=== PATIENT | female | born 1935 | race Caucasian/White ===

== ENCOUNTER → 2016-08-09 | Outpatient (CLI) | payer MEDICARE, MEDICAID ==
[~2016-08-09] MED LIST: AC500T PO; ACHD5005 PO; CEPH500C PO; CHOL200035 PO; HYDR-34 PO; HYDR-3857 PO; HYDR1TAB PO; LEVO500T69 PO; METR500T PO; MULT-974 PO; PRAV10TA23; PRAV80TA2 PO; TRAM-42 PO; VICODIN 5/325MG; [UNRECOGNIZED DRUG - OTHER] PO
--- OUTSIDE RECORDS SUMMARY | 2016-08-09 09:39 | XMS REPORT | Continuity of Care Document ---
Author Author [facility] Organization [facility] Address Unknown Phone Unavailable Care Team Providers Care Sharepoint Administrator Name Role Phone PCP Unavailable Source Comments Some departments are not documenting in the electronic medical record. If you do not see the information that you expected, contact Release of Information in the Health Information Management department at [phone] for further assistance in locating additional records.[facility] Active Allergies and Adverse Reactions Not on File Current Medications Not on file Active Problems Not on file Social History Tobacco Use Types Packs/Day Years Used Date Never Assessed Plan of Care Health Maintenance Due Date Last Done Comments Physical (Comprehensive) 1942 Exam Pertussis Vaccine 1947 Tetanus Vaccine 1953 Shingles Vaccine 1996 Osteoporosis Screening 2001 Prevnar/Pneumovax (#1) 2001 Influenza Vaccine 04/05/2016 Results from Last 3 Months Not on file
--- NOTE | 2016-08-09 19:18 | Diagnostic Imaging Report ---
Bilateral screening mammogram. The current study was also evaluated with a Computer Aided Detection (CAD) system. INDICATION: Screening. No current complaints stated on the questionnaire. COMPARISON: 08/26/14 FINDINGS: The breasts are composed of scattered fibroglandular densities. There is a skin lesion labeled with no suspicious mass or calcifications seen. Allowing for technique and positional differences, no suspicious change is seen. IMPRESSION: No significant change. ACR BI-RADS Category 2: Benign findings. Result letter will be mailed to the patient. Note: At least 10% of breast cancer is not imaged by mammography. Dictated by: Dictated on workstation # [id number]
== END ==
LOC: RAD 09:36
PROVIDERS: ATTEND Internal Medicine
DX: Z12.31 Encounter for screening mammogram for malignant neoplasm of breast (principal)

== ENCOUNTER → 2018-05-19 | Outpatient (CLI) | payer MEDICARE, MEDICAID ==
--- NOTE | 2018-05-19 13:40 | Diagnostic Imaging Report ---
Clinical indication: Patient with weight loss and tobacco use. Patient has a cough. Exam: Chest x-ray PA and lateral views. Comparisons: Chest x-ray dated 01/31/2015. Findings: Lungs/pleura: There is interval development of a subtle airspace opacity in the right lung base. Otherwise, lung findings are stable. Stable patchy consolidation of the left lung base, likely representing scarring. Mild COPD lung changes with increased retrosternal clear space and hyperinflated lungs. There is no pneumothorax. There is no pleural effusion. Mediastinum: Stable tortuosity of the thoracic aorta. Pulmonary vasculature: Unremarkable. Heart: Unremarkable. Bones/extrathoracic soft tissue: There are degenerative spurs involving the thoracic spine. Impression: 1: There is interval development of a subtle airspace opacity involving the right lung base which may represent pneumonia. Follow up chest x-ray in 2 - 4 weeks is suggested to evaluate for interval resolution of this finding. 2: Otherwise, stable chest x-ray exam with COPD lung changes. Stable scarring in the left lung base. Dictated by: Dictated on workstation # [id number]
== END ==
LOC: RAD 09:26
PROVIDERS: ATTEND Internal Medicine
DX: J98.4 Other disorders of lung (principal); R05 Cough; Z72.0 Tobacco use
CPT/HCPCS: 71046

== ENCOUNTER → 2018-06-03 | Outpatient (CLI) | payer MEDICARE, MEDICAID ==
--- NOTE | 2018-06-03 12:18 | Diagnostic Imaging Report ---
INDICATION: Abnormal lung sounds. Comparison made with prior examination 05/19/2018. FINDINGS: There is air-trapping compatible with COPD. Heart size is normal. Mediastinum is unremarkable. There is no pleural effusion or pneumothorax. IMPRESSION: COPD. No acute cardiopulmonary abnormality. Dictated by: Dictated on workstation # [id number]
== END ==
LOC: RAD 09:33
PROVIDERS: ATTEND Internal Medicine
DX: J44.9 Chronic obstructive pulmonary disease, unspecified (principal)
CPT/HCPCS: 71046

== ENCOUNTER → 2018-07-04 | Outpatient (CLI) | payer MEDICARE, MEDICAID ==
--- NOTE | 2018-07-04 14:52 | Diagnostic Imaging Report ---
PROCEDURE: CT head without contrast. TECHNIQUE: Multiple contiguous axial images were obtained through the brain without the use of intravenous contrast. INDICATION: Dizziness and falls. COMPARISON: No prior studies are available for comparison. FINDINGS: Ventricles and sulci are within normal limits. Moderate periventricular hypodensity is noted consistent with senescent change. No sulcal effacement, midline shift or hemorrhage is detected. Cisterns are patent. The visualized paranasal sinuses show mild mucosal thickening of the ethmoid air cells. IMPRESSION: Senescent changes. No acute intracranial process is detected. Dictated by: Dictated on workstation # [id number]
== END ==
LOC: RAD 11:25
PROVIDERS: ATTEND Internal Medicine
DX: R54 Age-related physical debility (principal); R53.83 Other fatigue; R42 Dizziness and giddiness; R41.3 Other amnesia; W19.XXXA Unspecified fall, initial encounter
CPT/HCPCS: 70450

== ENCOUNTER 2021-04-14 00:23 | Emergency (ER) | payer MEDICARE, MEDICAID ==
[~2021-04-14] VITALS: Ht 158 cm; Wt 65.0 kg
--- NOTE | 2021-04-14 01:58 | ED Fall/Injury ---
General Chief Complaint: Trauma-Non Activation Stated Complaint: FALL Nursing Triage Note: BROUGHT IN BY [facility] C/O LEFT HIP/LOWER BACK PAIN AFTER TRIPPING/FALLING FROM STANDING POSITION. DENIES LOC. Source: patient, EMS Exam Limitations: no limitations History of Present Illness Date Seen by Provider: Apr 14, 2021 Time Seen by Provider: 00:24 Initial Comments Patient to the ER by EMS from [place] is with chief complaint of fall. She denies striking her head just she tripped over the transition in a doorway and landed on her left buttocks. She is having some pain in her left buttocks. She does not anything for the pain right now. She is not having any dysuria fever chills cough shortness of air chest pain or pain elsewhere Allergies and Home Medications Allergies Coded Allergies: acetaminophen (Verified Adverse Reaction, Mild, NAUSEA, 04/13/12) diazepam (Verified Adverse Reaction, Mild, NAUSEA, 04/13/12) hydrocodone bit (Verified Adverse Reaction, Mild, NAUSEA, 04/13/12) Patient Home Medication List Home Medication List Reviewed: Yes Multivitamin (Multi Vitamin Daily) 1 Each Tablet, 1 TAB PO DAILY, (Reported) Entered as Reported by: LAVERN PATRICIO on 04/17/13 1014 Pravastatin Sodium (Pravastatin Sodium) 80 Mg Tablet, 80 MG PO HS, (Reported) Entered as Reported by: RAND ELIAS on 03/22/12 0820 Review of Systems Review of Systems Constitutional: No chills, No diaphoresis Eyes: Denies Blindness, Denies Blurred Vision Ears, Nose, Mouth, Throat: denies ear pain, denies ear discharge Respiratory: No cough, No short of breath Cardiovascular: No chest pain, No edema Gastrointestinal: No abdominal pain, No nausea, No vomiting Musculoskeletal: see HPI, back pain All Other Systems Reviewed Negative Unless Noted: Yes Past Eoryxov-Xxtruj-Zbneic Hx Patient Social History Tobacco Use?: No Substance use?: No Pt feels they are or have been: No Immunizations Up To Date First/Initial COVID19 Vaccinat: 08/25 Second COVID19 Vaccination Socrates: 08/25 COVID19 Vaccine Roll Icer: Infoblox Seasonal Allergies Seasonal Allergies: No Past Medical History Surgery/Hospitalization HX: HTN, HIGH LIPIDS, COPD, DEMENTIA, ARTHRITIS, UTI Section, Hysterectomy, Orthopedic High Cholesterol Reproductive Disorders: No Female Reproductive Disorders: Denies Sexually Transmitted Disease: No HIV/AIDS: No Osteoporosis, Arthritis Loss of Vision: Bilateral Hearing Impairment: Denies Adverse Reaction/Blood Tranf: No (IN 1965-NO REACTION) Family Medical History No Pertinent Family Hx Physical Exam Vital Signs Vital Signs - First Documented 04/14/21 00:25 Temp 36.5 Pulse 79 Resp 16 B/P (MAP) 145/86 (105) Pulse Ox 95 O2 Delivery Room Air Capillary Refill : Height, Weight, BMI Height: 5'2.00" Weight: 142lbs. 7.0oz. 64.238365lf; 26.00 BMI Method:Stated General Appearance: WD/WN, mild distress HEENT: PERRL/EOMI, normal ENT inspection, pharynx normal Neck: full range of motion, supple, normal inspection Cardiovascular: normal peripheral pulses, regular rate, rhythm Respiratory: no respiratory distress, no accessory muscle use Extremities: non-tender, normal inspection, normal capillary refill Neurologic/Psychiatric: alert, normal mood/affect, other (Oriented to person and place. At baseline per staff) Skin: normal color, warm/dry Kendall Coma Score Best Eye Response: (4) Open Spontaneously Best Verbal Response: (5) Oriented Best Motor Response: (6) Obeys Commands Kendall Total: 15 Progress/Results/Core Measures Results/Orders My Orders Orders - LAQUITA ENRIQUEZ Ct Thoracic/Lumbar Spine Wo (04/14/21 00:28) Acetaminophen Tablet (Tylenol Tablet) (04/14/21 02:00) Medications Given in ED Current Medications Medications Dose Ordered Sig/Glenys Route Start Time Stop Time Status Last Admin Dose Admin Acetaminophen 1,000 mg ONCE ONCE PO 04/14/21 02:00 04/14/21 02:01 DC 04/14/21 02:04 1,000 MG Vital Signs/I&O 04/14/21 04/14/21 00:25 02:00 Temp 36.5 36.2 Pulse 79 70 Resp 16 16 B/P (MAP) 145/86 (105) 134/83 Pulse Ox 95 98 O2 Delivery Room Air Room Air Blood Pressure Mean: 105 Diagnostic Imaging Diagonstic Imaging: CT Plain Films/CT/US/NM/MRI: other (Thoracolumbar spine) Comments Multilevel degenerative changes without evidence of acute fracture or traumatic malalignment. Aneurysmal dilatation of the infrarenal abdominal aorta measuring up to 3.5 cm. Colonic diverticulosis without diverticulitis. Reviewed: Reviewed by Me Departure Impression Primary Impression: Fall Qualified Codes: W19.XXXA - Unspecified fall, initial encounter Additional Impression: Lumbago Qualified Codes: M54.5 - Low back pain Disposition: 01 HOME, SELF-CARE Condition: Stable Departure-Patient Inst. Decision time for Depature: 01:57 Referrals: MAX VALDEZ MD (PCP/Family) Primary Care Physician Patient Instructions: Low Back Pain (DC), Preventing Falls Add. Discharge Instructions: Ice, topical creams and heat. Tylenol and ibuprofen as necessary for low back pain. Follow-up with your primary care doctor if not seeing improvement over the next 1 to 2 weeks. All discharge instructions reviewed with patient and/or family. Voiced understanding. LAQUITA ENRIQUEZ Apr 14, 2021 01:58
[2021-04-14 02:00] VITALS: BP 134/83
[2021-04-14] MEDS ORDERED: ACETAMINOPHEN 500 MG TAB (TYLENOL) PO ONE (02:00)
--- NOTE | 2021-04-14 06:29 | Diagnostic Imaging Report ---
PROCEDURE: CT thoracic and lumbar spine without contrast. TECHNIQUE: Multiple contiguous axial images were obtained through the thoracic and lumbar spine without the use of intravenous contrast. Sagittal and coronal reformations were then performed. All CT scans use one or more of the following dose optimizing techniques: automated exposure control, MA and/or KvP adjustment based on a patient size and exam type, or iterative reconstruction. INDICATION: Fall with thoracic and lumbar pain Thoracic spinal curvature and alignment are unremarkable. There is no evidence of acute fracture or paraspinous hematoma. There is mild diffuse endplate spurring and associated mild degenerative facet arthropathy throughout the thoracic spine. Note is made of dilatation of the ascending thoracic aorta to approximately 4.2 cm in diameter. No paraspinous hematoma is identified. Lumbar spinal curvature and alignment reveal diffuse disc space narrowing with grade 1 anterolisthesis of L3 on L4. There is marked narrowing of the L4-L5 and L5-S1 disc spaces with diffuse lower lumbar degenerative facet arthropathy. No fracture is identified. There is aneurysmal dilatation of the infrarenal abdominal aorta reaching approximately 3.4 cm in diameter. No paraspinous hematoma is identified. IMPRESSION: Lumbar spondylosis with grade 1 anterolisthesis of L3 on L4. No acute fracture is identified. Dictated by: Dictated on workstation # [id number]
== END 2021-04-14 02:05 | disposition home or self-care (01) ==
LOC: EDUNIT# 00:23 → ER 00:25
DX: M54.5 Low back pain (principal); I10 Essential (primary) hypertension; J44.9 Chronic obstructive pulmonary disease, unspecified; F03.90 Unspecified dementia, unspecified severity, without behavioral disturbance, psychotic disturbance, mood disturbance, and anxiety; E78.00 Pure hypercholesterolemia, unspecified; Z79.899 Other long term (current) drug therapy
CPT/HCPCS: 72128; 72131